=== PATIENT | female | born 1985 | race Asian ===

== ENCOUNTER 2020-09-21 14:30 | Inpatient (IN) ==
--- NOTE | 2020-09-21 16:11 | History & Physical Report ---
Date of Service September 21, 2020 Assessment & Plan (1) : - Admit to L&D for labor - Start pitocin IV per protocol - Anesthesiology consulted for epidural evaluation - Admission CBC pending--follow results - Anticipate Diet: NPO Code: Full Code History of Present Illness Primary Care Provider: NO PCP Yesenia is a 34 y/o female currently at 40 2/7 WGA with an ROSANNA 09/19/2020 as determined by Ultrasound who arrived for observation due to contractions every 10min and 4cm dilation in office. She was scheduled for IOL tomorrow due to postdates. + contractions; + movement; - fluid loss; - bloody show Had regular appointments with OB. Blood type: O+ Antibody screen: Negative Labs 02/10/20 Rubella: Immune VDRL/RPR: Nonreactive Gonorrhea: Neg Chlamydia: Neg HIV: Neg HbSAg: Neg GBS: Neg 08/25/20 COVID-19 negative 09/14/20 Other screens: cff-DNA: no (see scanned documents) CF: no SMA: no Allergies Allergy/AdvReac Type Severity Reaction Status Date / Time No Known Allergies Allergy Verified 09/21/20 13:50 Home Medications Home Medications Medication Instructions Recorded Confirmed Type prenat.vits,yogesh,lah-jeod-rgips 1 tab PO DAILY 02/03/20 09/21/20 History Patient History Medical History Abnormal biochemical finding on screening of mother Encounter for anatomic survey Varicella vaccination Surgical History [place] teeth removed Family History (Updated 02/03/20 @ 13:20 by Taylor Sousa) Other No pertinent family history in first degree relatives Social History (Updated 02/03/20 @ 13:20 by Taylor Sousa) Smoking Status: Never smoker Hx Alcohol Use: No Hx Substance Use: No Preferred Language: Mandarin French Communication Ability: Effective Coordinate Measuring Machine Technician Required: Yes and Video Beliefs That Will Affect Care: None marital status: marital status details: Nicholas Coleman (32) [phone] Current Living Situation: Spouse Current Living Situation Comment: lives with spouse, no pets Feels Safe at Home: Yes Safety Concerns: Feels Safe At This Time Assistive Devices: None Review of Systems Denies fever or chills. Denies shortness of breath or cough Denies chest pain Denies breast pain Denies dysuria or hematuria Denies leg pain or leg swelling Denies headache or changes in vision Physical Exam Physical Exam: General: Alert, oriented. No acute distress. Cardiac: Regular rate and rhythm, no murmurs/rubs/gallops. Respiratory: Clear to auscultation bilaterally a/p, no wheezes/rales/rhonchi. No increased work of breathing. Symmetrical chest rise. No respiratory distress. Abdomen: Gravid. Vertex position. + heart tones. + palpable contractions. EFW 7-8# Pelvic: Dilation 5.5cm; Effacement 75; Station -[address] Escalona External FHT and external uterine monitors used; Category I tracing;Moderate FHT variability. Lower Extremities: No lower extremity edema or swelling. No deep calf pain. Jolly's negative bilaterally. Results & Data ([facility]) Vital Signs (Past 12 Hours) Vital Signs Temp Pulse Resp BP 09/21/20 14:38 37.3 C 65 20 121/66 09/21/20 14:37 65 121/66 Supervising Physician Co-Signing Physician Notes Resident Physician Supervision Note: I was present with Dr. Carlson during the history and exam. I discussed the case with the resident and agree with the findings and plan as documented in the note. Any exceptions or clarifications are listed here: AROM performed after informed consent and clear fluid noted. will see how that augments labor pattern which is irregular. if needed will add pitocin and pt aware. fhts categ 1. Documented By: Justine Escalona MD, FACOG Resident Activity Tracking Resident Involvement: Resident Care Provided Care Provided: OB Delivery
[2020-09-21 16:38] LABS: Hematocrit (blood only) 34.9 % (37-47); Hemoglobin 11.7 g/dL (12.0-16.0); Mean Corpuscular Hemoglobin 32.1 pg (25-34); Mean Corpuscular Volume 95.9 fL (80-100); Mean Platelet Volume 10.5 fL (7.4-10.4); Platelet Count 126 K/uL (130-400); RDW Coefficient of Variation 13.1 % (11.5-14.5); RDW Standard Deviation 45.6 fL (36.4-46.3); Red Blood Count 3.64 M/uL (4.2-5.4); White Blood Count 5.02 K/uL (4.8-10.8)
[2020-09-21 16:40] LABS: Mean Corpuscular Hgb Conc 33.5 g/dL (32-36)
[2020-09-21] MEDS: LACTATED RINGER'S 1,000 ML IV PRN ×3 (16:46→21:00)
[2020-09-21] MEDS ORDERED: ePHEDrine sulfate 50 MG/ML AMP ONE (17:13)
[2020-09-21] MEDS ORDERED: SODIUM CHLORIDE 0.9% INJ 10 ML VIAL ONE (17:14)
[2020-09-21] MEDS ORDERED: fentaNYL citrate 100 MCG/2 ML VIAL ONE (17:14)
[2020-09-21] MEDS ORDERED: fentaNYL 2MCG/ML ROPIVACAINE 1.25MG/ML 100 ML BAG EPI ONE (17:14)
[2020-09-21] MEDS ORDERED: BUPIVACAINE 0.25% 30 ML VIAL ONE (17:14)
[2020-09-21] MEDS ORDERED: fentaNYL 2MCG/ML ROPIVACAINE 1.25MG/ML 100 ML BAG EPI PRN (17:18)
[2020-09-21] MEDS ORDERED: ONDANSETRON INJ 2 MG/ML 2 ML VIAL IV PRN (17:18)
[2020-09-21] MEDS ORDERED: NALOXONE HCL 1 MG in SODIUM CHLORIDE 0.9% 1000ML 1,000 ML IV PRN (17:18)
[2020-09-21] MEDS ORDERED: ePHEDrine sulfate 50 MG/ML AMP IV PRN (17:18)
[2020-09-21] MEDS ORDERED: NALOXONE HCL 0.4 MG/1 ML VIAL/CARP IV PRN (17:18)
[2020-09-21] MEDS ORDERED: diphenhydrAMINE 50 MG/ML VIAL IV PRN (17:18)
[2020-09-21] MEDS ORDERED: PROMETHAZINE HCL 25 MG in SODIUM CHLORIDE 0.9% 50 ML IV PRN (17:18)
--- NOTE | 2020-09-21 17:20 | Anesthesiology Consultation ---
Date of Service September 21, 2020 Assessment & Plan Chart Review Chart Review: Acceptable Risk for Labor Epidural ASA ASA2 Proposed Anesthesia Anesthesia Type: Labor Epidural Risk / Benefits Reviewed With: PT / POA / Parent / Guardian, Accepts Plan and Informed Consent Obtained History Height/Weight Height: 5 ft 4.96 in Weight: 66.224 kg Allergies Allergy/AdvReac Type Severity Reaction Status Date / Time No Known Allergies Allergy Verified 09/21/20 13:50 Medications Home Medications Medication Instructions Recorded Confirmed Last Taken prenat.vits,yogesh,eyw-gffg-qqapm 1 tab PO DAILY 02/03/20 09/21/20 Unknown Active Medications Generic Name Dose Route Start Last Admin Trade Name Freq PRN Reason Stop Dose Admin Lactated Ringer's 1,000 mls @ 125 mls/hr 09/21/20 16:07 09/21/20 17:08 Lr IV 09/23/20 16:06 999 mls/hr .Q8H PRN Infusion L&D Protocol Protocol Past Medical History Medical History Abnormal biochemical finding on screening of mother Encounter for anatomic survey Varicella vaccination Exercise / Class Metabolic Activity II 4-5 Yardwork/Stairs/Walk up hill Past Family History Family History Other No pertinent family history in first degree relatives Past Surgical History Surgical History [place] teeth removed Past Anesthesia History No Hx of Anesthesia Complications and No Family Hx of Anesthesia Complications History of PONV No Hx of PONV and No Hx of Motion Sickness Social History Smoking Status: Never smoker Hx Alcohol Use: No Hx Substance Use: No substance use type: does not use Review of Systems denies fever/cough/ colds/ chest pain/ SOB/ FRANCISCO denies FRANCISCO Physical Exam Vital Signs Last Vital Signs Temp 37.2 C 09/21/20 16:48 Pulse 64 09/21/20 17:56 Resp 20 09/21/20 14:38 BP 143/81 H 09/21/20 17:56 Pulse Ox 97 09/21/20 17:56 ENMT Mouth: no TMJ abnormality and no dentition abnormality Thyromental Distance: > or= 3.5 Finger Breadths Mallampati Class: II Neck neck extension not limited Respiratory normal respiratory effort; no respiratory distress Auscultation: lungs clear to auscultation bilaterally Cardiovascular Rate/Rhythm: regular rate and regular rhythm Neurologic moves all extremities Psychiatric Orientation: alert and oriented x 3 Testing Laboratory Results 09/21/20 16:28
--- NOTE | 2020-09-21 19:00 | Labor Progress Brief Note ---
Date of Service September 21, 2020 Subjective Reason For Note: Requested By RN decel Assessment & Plan (1) Active labor at term: fhts recovered with ivf bolus and position change. this is her spont labor pattern. cx unchanged per nurse. of note, spouse asked nurse when i was not in the room about nipple stimulation to help labor and they were urged not to do. per nurse during decel uterus seemed to have prolonged contraction by palpation. fhts now categ 1. will watch. Admission and Anticipated Discharge Date Admission Date: September 21, 2020 Physical Exam Constitutional: WD/WN, vitals as above Genitourinary: Manual OB Exam: + cervical dilation (per nurse) 6 cm OB Exam Monitor Tracing: + external FHT monitor used (140 mod variability, early decels), + external uterine monitor used (q2-3), + normal FHT variability and + early decelerations present by the time i arrived to room fhts recovered to above, was in 80s, nurse used ivf bolus and position change to help, recent epidural noted. Results & Data ([facility]) Vital Signs (Past 12 Hours) Vital Signs Temp Pulse Resp BP Pulse Ox 09/21/20 18:55 50 L 150/75 H 09/21/20 18:51 53 L 100 09/21/20 18:46 56 L 99 09/21/20 18:41 59 L 145/68 H 98 09/21/20 18:38 56 L 144/87 H 09/21/20 18:36 58 L 97 09/21/20 18:31 54 L 97 09/21/20 18:26 55 L 97 09/21/20 18:21 62 139/73 97 09/21/20 18:17 55 L 138/71 09/21/20 18:16 68 97 09/21/20 18:11 62 137/81 97 09/21/20 18:06 59 L 131/77 97 09/21/20 18:01 65 129/76 96 09/21/20 17:56 64 143/81 H 97 09/21/20 17:54 67 138/77 09/21/20 17:52 60 132/73 09/21/20 17:51 61 97 09/21/20 17:50 67 135/76 09/21/20 17:48 65 150/75 H 09/21/20 17:46 73 98 09/21/20 17:41 71 99 09/21/20 17:36 76 97 09/21/20 17:31 71 97 09/21/20 17:26 64 97 09/21/20 17:21 57 L 98 09/21/20 17:16 60 98 09/21/20 17:11 64 98 09/21/20 16:48 99.0 F 09/21/20 16:46 60 132/83 09/21/20 14:38 99.1 F 65 20 121/66 09/21/20 14:37 65 121/66 Coding Level of Care Code None Diagnoses Active labor at term
--- NOTE | 2020-09-21 21:15 | Labor Progress Brief Note ---
Date of Service September 21, 2020 Subjective Reason For Note: Requested By RN RN thought forebag needed to be arom on her last exam. pt comfortable but starting to feel some suprapubic pressure. Assessment & Plan (1) Active labor at term: begin 2nd stage. fhts categ 2. Admission and Anticipated Discharge Date Admission Date: September 21, 2020 Physical Exam Constitutional: WD/WN, vitals as above Genitourinary: Manual OB Exam: + cervical dilation (ant lip), + cervical effacement 100% and + station + 2 OB Exam Monitor Tracing: + external FHT monitor used (135 mod variability, variables. ), + external uterine monitor used (q2), + category II, + normal FHT variability and + variable decelerations obvious bladder, drained by nurse for 1000cc, ant lip resolved. Results & Data ([facility]) Vital Signs (Past 12 Hours) Vital Signs Temp Pulse Resp BP Pulse Ox 09/21/20 21:11 84 97 09/21/20 21:10 78 152/83 H 09/21/20 21:06 81 97 09/21/20 21:01 93 H 97 09/21/20 20:56 77 97 09/21/20 20:51 67 100 09/21/20 20:46 66 100 09/21/20 20:41 71 154/72 H 100 09/21/20 20:36 66 100 09/21/20 20:31 66 100 09/21/20 20:30 18 09/21/20 20:26 62 100 09/21/20 20:25 57 L 151/81 H 09/21/20 20:21 58 L 100 09/21/20 20:16 62 99 09/21/20 20:12 60 131/72 09/21/20 20:11 60 157/87 H 99 09/21/20 20:06 56 L 100 09/21/20 20:01 66 100 09/21/20 19:56 58 L 100 09/21/20 19:55 62 133/83 09/21/20 19:51 62 100 09/21/20 19:46 62 100 09/21/20 19:41 73 130/70 100 09/21/20 19:36 66 100 09/21/20 19:33 58 L 140/80 09/21/20 19:31 63 100 10/21/20 19:30 18 09/21/20 19:26 62 152/84 H 100 09/21/20 19:21 58 L 100 09/21/20 19:16 59 L 98 09/21/20 19:11 54 L 98 09/21/20 19:09 59 L 125/81 09/21/20 19:06 57 L 98 09/21/20 19:05 99.3 F 18 09/21/20 19:01 53 L 98 09/21/20 18:56 51 L 100 09/21/20 18:55 50 L 150/75 H 09/21/20 18:51 53 L 100 09/21/20 18:46 56 L 99 09/21/20 18:41 59 L 145/68 H 98 09/21/20 18:38 56 L 144/87 H 09/21/20 18:36 58 L 97 09/21/20 18:31 54 L 97 09/21/20 18:26 55 L 97 09/21/20 18:21 62 139/73 97 09/21/20 18:17 55 L 138/71 09/21/20 18:16 68 97 09/21/20 18:11 62 137/81 97 09/21/20 18:06 59 L 131/77 97 09/21/20 18:01 65 129/76 96 09/21/20 17:56 64 143/81 H 97 09/21/20 17:54 67 138/77 09/21/20 17:52 60 132/73 09/21/20 17:51 61 97 09/21/20 17:50 67 135/76 09/21/20 17:48 65 150/75 H 09/21/20 17:46 73 98 09/21/20 17:41 71 99 09/21/20 17:36 76 97 09/21/20 17:31 71 97 09/21/20 17:26 64 97 09/21/20 17:21 57 L 98 09/21/20 17:16 60 98 09/21/20 17:11 64 98 09/21/20 16:48 99.0 F 09/21/20 16:46 60 132/83 09/21/20 14:38 99.1 F 65 20 121/66 09/21/20 14:37 65 121/66 Coding Level of Care Code None Diagnoses Active labor at term
[2020-09-21] MEDS: OXYTOCIN 30 UNITS/500 ML BAG IV PRN ×2 (22:01→22:36)
[2020-09-21] MEDS ORDERED: OXYTOCIN 30 UNITS/500 ML BAG IV PRN (22:38)
[2020-09-21] MEDS ORDERED: oxyCODONE/ACETAMINOPHEN 5mg/325mg TAB PO PRN (22:38)
--- NOTE | 2020-09-21 22:42 | Delivery Summary ---
Vaginal Delivery Summary Date of Service September 21, 2020 Called to see patient by nurse as pushing in 2nd stage resulting in variables t o 80s. Recovery to 130-150s. SVE C/C/+2 +3 with pushing. Patient pushing effectively but bright red bleeding noted with pushing consistent with maternal lacerations of vagina. heart tones at times to 80s but at other times 100s. Counseled couple about vacuum assistance as maternal bleeding consistent and fhts as noted. They gave consent. Bladder had recently been drained. Outlet vacuum used over one pull and one pop off to deliver cephalic. Loose nuchal x 1 reduced easily. Mouth and nose bulb suctioned at perineum and shoulders and body then delivered with ease. to maternal abdomen where cord doubly clamped and cut. Viable male apgars 8,9. Placenta delivered spontaneously and intact with hemostasis achieved with dilute pitocin and uterine massage. Fundal tone was good and brisk bleeding noted consistent with vaginal lacerations. Sulcal tear on left repaired with 3-0 vicyl, followed by more midline vaginal laceration with 3-0 vicryl. 3rd degree perineal laceration noted and allis clamps used to grasp ends of disrupted sphincter. 2-0 vicryl used to reapproximate the anal sphinter in interrupted figure of eight sutures. The perineum was reapproximated in usual fashion with 3-0 vicryl and the skin was reapproximated as well with same suture. Continued bleeding at introitus controlled with several figure of eight sutures of 3-0 vicryl and hemostasis adequate. Uterine tone was reasonable but EBL 700cc, with probably 500 of that being from her lacerations. Mother and baby stable in recovery. Cord blood and cord gases obtained[place] [facility] [place] Vaginal Delivery Codes: 50150 global code for the antepartum, delivery, and post-
[2020-09-21] MEDS ORDERED: OXYTOCIN 20 UNITS in LACTATED RINGER'S 1,000 ML IV SCH (22:45)
[2020-09-21 22:55] LABS: Base Excess Cord Venous Blood -5.6 mEq/L (-7.7-1.9); Cord Venous Blood HCO3 22 mmol/L (18.4-26.8); Cord Venous Blood PCO2 54 mmHg (30.4-57.2); Cord Venous Blood PO2 23 mmHg (14.1-43.3); Cord Venous Blood pH 7.23 (7.20-7.44)
[2020-09-21 22:59] LABS: Hematocrit (blood only) 29.5 % (37-47); Hemoglobin 10.1 g/dL (12.0-16.0)
[2020-09-21 23:04] LABS: Base Excess Cord Arterial Bld -6.2 mEq/L (-9-1.8); CO2 Cord Arterial Blood 56 mmHg (39.1-73.5); HCO3 Cord Arterial Blood 22 mmol/L (19.7-28.5); PO2 Cord Arterial Blood 24 mmHg (4.1-31.7); pH Cord Arterial Blood 7.21 (7.1-7.38)
[2020-09-21 23:06] LABS: O2 Saturation Cord Venous Bld < 68.0 % (<68); Oxygen Sat Cord Arterial Blood < 60.0 % (<60)
[2020-09-21] MEDS ORDERED: SUPERCREAM 0.870% 15 GM JAR EXT PRN (23:12)
[2020-09-21] MEDS ORDERED: BENZOCAINE 20% AER SPR 82.5 GM CAN EXT PRN (23:12)
[2020-09-21] MEDS ORDERED: DIPHTHERIA/TETANUS/PERTUSSIS 0.5 ML SYR/VIAL IM ONE (23:12)
[2020-09-21] MEDS ORDERED: HYDROCORTISONE ACETATE 25 MG SUPP PR PRN (23:12)
[2020-09-22] MEDS: IBUPROFEN 600 MG TAB PO PRN ×5 (00:50→20:03)
[2020-09-22 06:27] LABS: Hematocrit (blood only) 22.5 % (37-47); Hemoglobin 7.7 g/dL (12.0-16.0)
--- NOTE | 2020-09-22 06:55 | Anesthesia Procedure Note ---
Date of Service September 22, 2020 Anesthesia Post Epidural Note Vital Signs Vital Signs: Temp Pulse Resp BP Pulse Ox 37.1 C 90 20 92/64 L 99 09/22/20 05:30 09/22/20 05:30 09/22/20 05:30 09/22/20 05:30 09/22/20 01:30 Pain Intensity Abdomen: Pain Intensity: 2 Notes Mental Status: alert / awake / arousable and participated in evaluation Patient Amnestic to Procedure: No Nausea / Vomiting: adequately controlled Pain: adequately controlled Airway Patency, RR, SpO2: stable & adequate BP & HR: stable & adequate Hydration State: stable & adequate Neuraxial Anesthesia: was administered and sensory block resolved Anesthetic Complications: no major complications apparent and Pt Satisfied with anesthetic care Epidural: Removed without complications and With tip intact
--- NOTE | 2020-09-22 07:10 | Obstetrical Progress Note ---
Date of Service <Yung Watts MD - Last Filed: 09/22/20 08:07> September 22, 2020 Assessment & Plan <Yung Watts MD - Last Filed: 09/22/20 08:07> (1) : - PNL: Rh pos, RI, GBS neg, COVID neg - Feels slightly weak/dizzy this morning. Will eat breakfast; still not ambulating, has not voided on her own. - Insert green cath today as pt green snot been able to urinate on her own - Pain well controlled with ibuprofen 600mg Q4H PRN - After discharge will have 6 week follow-up with Dr. Escalona Day #:: 1 Subjective <Yung Watts MD - Last Filed: 09/22/20 08:07> Yesenia is a 34 y/o female who is PPD #1 following VAVD at 40 2/7 weeks. She reports feeling well overall this morning. Light abdominal cramping and 3/10 pain well managed on analgesics. Has not voided yet on her own after delivery. Has not had a meal yet but will later this morning. Patient still not ambulating as she had some dizziness. Has persistent lochia with some improvement this morning. Currently bottle feeding. Review of Systems Denies fever or chills. Denies shortness of breath or cough. Denies chest pain. Denies breast pain. Denies dysuria. Denies leg pain or leg swelling. Denies headache or changes in vision. Physical Exam <Yung Watts MD - Last Filed: 09/22/20 08:07> General: Alert, oriented. No acute distress. Cardiac: Regular rate and rhythm. No murmurs. Respiratory: Clear to auscultation bilaterally a/p, no wheezes/rales/rhonchi. No increased work of breathing. Symmetrical chest rise. No respiratory distress. Abdomen: Soft, nontender, nondistended. Bowel sounds present. Uterus: Uterine fundus firm, palpable at umbilicus. Lower Extremities: No lower extremity edema or swelling. No deep calf pain. Jolly's negative bilaterally. Results & Data ([facility]) <Yung Watts MD - Last Filed: 09/22/20 08:07> Vital Signs (Past 12 Hours) Vital Signs Temp Pulse Pulse Resp BP BP Pulse Ox 09/22/20 05:30 37.1 C 90 20 92/64 L 09/22/20 01:30 37.5 C 77 18 109/66 99 09/22/20 00:51 79 101/57 L 09/22/20 00:47 76 99 09/22/20 00:45 18 09/22/20 00:42 74 99 09/22/20 00:37 77 99 09/22/20 00:36 71 98/55 L 09/22/20 00:32 72 99 09/22/20 00:27 69 99 09/22/20 00:22 68 98 09/22/20 00:21 73 99/54 L 09/22/20 00:19 80 90/52 L 09/22/20 00:17 74 99 09/22/20 00:15 18 09/22/20 00:12 82 99 09/22/20 00:07 80 99 09/22/20 00:06 79 99/57 L 09/22/20 00:02 76 99 09/21/20 23:57 85 99 09/21/20 23:52 78 99 09/21/20 23:51 72 106/58 L 09/21/20 23:47 85 99 09/21/20 23:45 18 09/21/20 23:42 86 99 09/21/20 23:37 91 H 99 09/21/20 23:36 83 119/61 09/21/20 23:32 87 99 09/21/20 23:30 18 09/21/20 23:27 88 100 09/21/20 23:22 78 100 09/21/20 23:19 82 110/58 L 09/21/20 23:17 83 100 09/21/20 23:15 18 09/21/20 23:14 78 111/58 L 09/21/20 23:12 78 100 09/21/20 23:09 83 109/61 09/21/20 23:07 78 100 09/21/20 23:05 80 100/56 L 90 09/21/20 23:02 83 100 09/21/20 23:00 18 09/21/20 22:58 91/54 L 09/21/20 22:57 89 100 10/21/20 22:55 76 91/52 L 09/21/20 22:52 75 100 20 22:49 74 86/50 L 09/21/20 22:47 74 98 09/21/20 22:46 84 87/50 L 20 22:45 37.2 C 18 09/21/20 22:44 52 L 71/35 L 20 22:41 63 62/34 L 09/21/20 22:40 75 82/47 L 09/21/20 22:24 86 106/66 09/21/20 22:09 96 H 121/68 09/21/20 22:07 100 H 113/68 09/21/20 21:57 18 09/21/20 21:56 135 H 100 09/21/20 21:51 99 H 99 20 21:46 115 H 94 20 21:41 74 100 09/21/20 21:40 78 148/72 H 09/21/20 21:36 78 99 09/21/20 21:31 80 99 09/21/20 21:30 18 09/21/20 21:26 90 95 20 21:25 127 H 93 20 21:24 82 161/79 H 20 21:21 75 97 09/21/20 21:20 96 H 93 20 21:16 85 96 20 21:13 102 H 93 20 21:11 84 97 20 21:10 78 152/83 H 20 21:06 81 97 09/21/20 21:01 93 H 97 20 21:00 37.4 C 18 20 20:56 77 97 21/20 20:51 67 100 21/20 20:46 66 100 2120 20:41 71 154/72 H 100 2120 20:36 66 100 21/20 20:31 66 100 21/20 20:30 18 21/20 20:26 62 100 21/20 20:25 57 L 151/81 H 2120 20:21 58 L 100 2120 20:16 62 99 2120 20:12 60 131/72 10/21/20 20:11 60 157/87 H 99 09/21/20 20:06 56 L 100 09/21/20 20:01 66 100 09/21/20 19:56 58 L 100 09/21/20 19:55 62 133/83 09/21/20 19:51 62 100 09/21/20 19:46 62 100 09/21/20 19:41 73 130/70 100 09/21/20 19:36 66 100 09/21/20 19:33 58 L 140/80 09/21/20 19:31 63 100 09/21/20 19:30 18 09/21/20 19:26 62 152/84 H 100 09/21/20 19:21 58 L 100 09/21/20 19:16 59 L 98 09/21/20 19:11 54 L 98 09/21/20 19:09 59 L 125/81 09/21/20 19:06 57 L 98 <Justine Escalona MD, FACOG - Last Filed: 09/22/20 08:11> Co-Signing Physician Notes Resident Physician Supervision Note: I was present with Dr. Carlson during the history and exam. I discussed the case with the resident and agree with the findings and plan as documented in the note. Any exceptions or clarifications are listed here: pt with dizziness overnight. no ongoing bleeding but hgb 7.7. discussed blood transfusion. consent reviewed and to be signed. couple willing to accept but want to see if after her breakfast anything changes with her ability to ambulate. of note she said she did eat last pm and tanya well. due to urinary retention, did receive green this am and good urine output noted, plan to keep until tomorrow am for voiding trial. Documented By: Justine Escalona MD, FACOG Resident Activity Tracking <Yung Watts MD - Last Filed: 09/22/20 08:07> Resident Involvement: Resident Care Provided Care Provided: OB Delivery
[2020-09-22] MEDS: DOCUSATE SODIUM 100 MG CAP PO SCH ×2 (07:59→20:03)
[2020-09-23] MEDS: IBUPROFEN 600 MG TAB PO PRN ×6 (00:11→23:55)
--- NOTE | 2020-09-23 05:52 | Obstetrical Progress Note ---
Date of Service <Yung Watts MD - Last Filed: 09/23/20 07:39> September 23, 2020 Assessment & Plan <Yung Watts MD - Last Filed: 09/23/20 07:39> (1) : - PNL: Rh pos, RI, GBS neg, COVID neg - Feels well today. Eating well, ambulating well - Ricketts in place--plan to remove today - Patient declined transfusion yesterday w/Hgb at 7.7 and weakness/dizziness--feeling better today - CBC w diff ordered--follow results - Pain well controlled with ibuprofen 600mg Q4H PRN - Routine care -- OOB, ambulation, diet progression as tolerated - After discharge will have 6 week follow-up with Dr. Pola Mccoy #:: 2 Subjective <Yung Watts MD - Last Filed: 09/23/20 07:39> Li is a 34 y/o female who is PPD #2 following VAVD at 40+ weeks. She reports feeling well overall this morning. Light abdominal cramping and 5/10 pain well managed on analgesics. Ricketts still in place. Tolerating meals over night without difficulty. Patient has been able to ambulate some. Has persistent lochia with some improvement this morning. Currently bottle feeding with plans to breast feed--has begun pumping but no milk yet. Review of Systems Denies fever or chills. Denies shortness of breath or cough. Denies chest pain. Denies breast pain. Denies dysuria. Denies leg pain or leg swelling. Denies headache or changes in vision. Physical Exam <Yung Watts MD - Last Filed: 09/23/20 07:39> General: Alert, oriented. No acute distress. Cardiac: Regular rate and rhythm. No murmurs. Respiratory: Clear to auscultation bilaterally a/p, no wheezes/rales/rhonchi. No increased work of breathing. Symmetrical chest rise. No respiratory distress. Abdomen: Soft, nontender, nondistended. Bowel sounds present. Uterus: Uterine fundus firm, palpable 2 cm below umbilicus. Lower Extremities: No lower extremity edema or swelling. No deep calf pain. Jolly's negative bilaterally. Results & Data ([facility]) <Yung Watts MD - Last Filed: 09/23/20 07:39> Vital Signs (Past 12 Hours) Vital Signs Temp Pulse Resp BP 09/22/20 23:40 36.8 C 86 16 108/70 09/22/20 19:35 37.2 C 85 16 109/71 <Cleo Blanchard MD, FACOG - Last Filed: 09/23/20 07:53> Co-Signing Physician Notes Resident Physician Supervision Note: I was present with Dr. Carlson during the history and exam. I discussed the case with the resident and agree with the findings and plan as documented in the note. Any exceptions or clarifications are listed here: [None] Documented By: Cleo Blanchard MD, FACOG Resident Activity Tracking <Yung Watts MD - Last Filed: 09/23/20 07:39> Resident Involvement: Resident Care Provided Care Provided: OB Delivery
[2020-09-23] MEDS: DOCUSATE SODIUM 100 MG CAP PO SCH ×2 (08:29→20:55)
[2020-09-23 08:49] LABS: Basophils # (auto) 0.01 K/uL (0-0.2); Basophils % (auto) 0.1 %; Eosinophils # (auto) 0.09 K/uL (0-0.5); Eosinophils % (auto) 0.9 %; Hemoglobin 7.6 g/dL (12.0-16.0); Immature Granulocytes # (auto) 0.01 K/uL (0.00-0.02); Immature Granulocytes % (auto) 0.1 %; Lymphocytes % (auto) 12.4 %; Mean Corpuscular Hemoglobin 33.3 pg (25-34); Mean Corpuscular Hgb Conc 34.5 g/dL (32-36); Mean Corpuscular Volume 96.5 fL (80-100); Mean Platelet Volume 9.4 fL (7.4-10.4); Monocytes # (auto) 0.55 K/uL (0.11-0.59); Monocytes % (auto) 5.7 %; Neutrophils # (auto) 7.85 K/uL (1.4-6.5); Neutrophils % (auto) 80.8 %; Platelet Count 105 K/uL (130-400); RDW Coefficient of Variation 13.7 % (11.5-14.5); RDW Standard Deviation 47.7 fL (36.4-46.3); Red Blood Count 2.28 M/uL (4.2-5.4); White Blood Count 9.71 K/uL (4.8-10.8)
[2020-09-23 09:14] LABS: Anisocytosis Present
[2020-09-23] MEDS ORDERED: SODIUM CHLORIDE 0.9% 250 ML IV PRN ×2 (10:58→11:08)
--- NOTE | 2020-09-23 11:02 | Obstetrical Progress Note ---
Date of Service September 23, 2020 Assessment & Plan (1) Anemia due to blood loss: - patient has tried to ambulate twice without success - orthostatic when standing - discussed with patient and need for transfusion - all questions answered - permit signed Subjective Continued lightheadedness with ambulation Physical Exam Hgb 7.6 Results & Data ([facility]) Vital Signs (Past 12 Hours) Vital Signs Temp Pulse Resp BP 09/22/20 23:40 98.2 F 86 16 108/70
[2020-09-23] MEDS: ACETAMINOPHEN 325 MG TAB PO PRN ×2 (11:43→21:57)
--- NOTE | 2020-09-23 18:12 | Obstetrical Progress Note ---
Date of Service September 23, 2020 Assessment & Plan (1) Anemia due to blood loss: - Vitals stable post-transfusion - will check H/H in 12 hours - continue to observe for hypotensive sx's Subjective Patient has receives 2U PRBC's. "I feel much better, no longer lightheaded." Results & Data ([facility]) Vital Signs (Past 12 Hours) Vital Signs Temp Pulse Pulse Resp BP BP Pulse Ox 09/23/20 17:25 98.2 F 87 16 125/80 98 09/23/20 16:50 98.8 F 81 18 118/72 98 09/23/20 15:50 99.5 F 84 84 16 111/71 111/71 97 09/23/20 15:20 99.3 F 86 18 109/71 98 09/23/20 15:07 98.6 F 91 H 18 106/70 09/23/20 14:46 97.9 F 89 16 125/74 09/23/20 14:45 97.9 F 89 16 125/74 09/23/20 14:00 99.0 F 72 20 114/72 09/23/20 13:30 99.1 F 82 20 111/69 09/23/20 13:00 98.2 F 83 20 111/69 09/23/20 12:45 98.2 F 84 20 101/64 09/23/20 12:30 98.6 F 87 20 102/60 09/23/20 12:21 98.6 F 87 18 102/60 09/23/20 08:00 98.1 F 71 20 104/68
[2020-09-24] MEDS: IBUPROFEN 600 MG TAB PO PRN ×4 (04:08→17:52)
[2020-09-24 06:09] LABS: Hematocrit (blood only) 28.8 % (37-47); Hemoglobin 9.7 g/dL (12.0-16.0)
--- NOTE | 2020-09-24 06:55 | Obstetrical Progress Note ---
Date of Service <Yung Watts MD - Last Filed: 09/24/20 08:04> September 24, 2020 Assessment & Plan <Yung Watts MD - Last Filed: 09/24/20 08:04> (1) : - PNL: Rh pos, RI, GBS neg, COVID neg - Feels well today. Eating well, ambulating well - Ricketts in place--plan to remove today - Pt transfused w/ 2 units PRBCs yesterday--Hgb up from 7.6 to 9.7 this AM - Pain well controlled with ibuprofen 600mg Q4H PRN - Routine care -- OOB, ambulation, diet progression as tolerated - After discharge will have 6 week follow-up with Dr. Escalona - Plan for discharge later today Subjective <Yung Watts MD - Last Filed: 09/24/20 08:04> Yesenia is a 34 y/o female who is PPD #3 following VAVD at 40 2/7 weeks. She reports feeling well overall this morning. Light abdominal cramping and 4/10 pain well managed on analgesics. Voiding well. Tolerating meals overnight without difficulty. Patient has been able to ambulate some. Has persistent lochia with some improvement this morning. Currently bottle feeding--breast pumping but milk has not come in yet. Review of Systems Denies fever or chills. Denies shortness of breath or cough. Denies chest pain. Denies breast pain. Denies dysuria. Denies leg pain or leg swelling. Denies headache or changes in vision. Physical Exam <Yung Watts MD - Last Filed: 09/24/20 08:04> General: Alert, oriented. No acute distress. Cardiac: Regular rate and rhythm. No murmurs. Respiratory: Clear to auscultation bilaterally a/p, no wheezes/rales/rhonchi. No increased work of breathing. Symmetrical chest rise. No respiratory distress. Abdomen: Soft, nontender, nondistended. Bowel sounds present. Uterus: Uterine fundus firm, palpable 3 cm below umbilicus. Lower Extremities: No lower extremity edema or swelling. No deep calf pain. Jolly's negative bilaterally. Results & Data ([facility]) <Yung Watts MD - Last Filed: 09/24/20 08:04> Vital Signs (Past 12 Hours) Vital Signs Temp Pulse Resp BP Pulse Ox 09/24/20 04:15 36.5 C 75 16 126/82 98 09/23/20 23:30 36.7 C 79 16 113/72 96 09/23/20 20:30 36.9 C 87 18 121/78 98 <Roby Wilkes Jr, MD, FACOG - Last Filed: 09/24/20 08:25> Co-Signing Physician Notes Resident Physician Supervision Note: I was present with Dr. Carlson during the history and exam. I discussed the case with the resident and agree with the findings and plan as documented in the note. Any exceptions or clarifications are listed here: Patient feels much better after transfussion, no orthostatic sx's. Ready for d/c, instructions given, f/u in 6 weeks Documented By: Roby Wilkes Jr, MD, FACOG Resident Activity Tracking <Yung Watts MD - Last Filed: 09/24/20 08:04> Resident Involvement: Resident Care Provided Care Provided: OB Delivery
[2020-09-24] MEDS: DOCUSATE SODIUM 100 MG CAP PO SCH (09:21)
--- NOTE | 2020-09-24 13:54 | Obstetrical Progress Note ---
Date of Service September 24, 2020 Assessment & Plan Admission and Anticipated Discharge Date Admission Date: September 21, 2020 Pt reports short episode has since resolved and she feels fine now. They felt more heart racing was more of their concern than the associated sob. VS stable including normal pulse ox, exam is benign and reassuring. Low suspicion for VTE, can consider EKG if symptoms occur again. Reviewed VTE precautions with pt and her , they verbalized understanding. If remains stable, still plan for d/c today Subjective Evaluated pt at bedside due to report that pt had episode of increased HR with associated SOB that has since resolved. Pt and her stated pt was in the nursery seeing baby for 10-15 minutes, returned to her room for lunch, and a few min later noted that she felt like her heart was racing. She felt slightly short of breath during that time. Total time was a few minutes, spontaneously resolved. No lightheadedness/dizziness, fevers/chills, n/v, chest pain associated. No leg pain or swelling per pt. Reports this has happened just the one time today. Physical Exam Constitutional: WD/WN, vitals as above no acute distress Respiratory: normal respiratory effort, lungs clear to auscultation no respiratory distress, no labored breathing and does not use accessory muscles Cardiovascular: RRR, no murmur, no edema Bilat lower extremities symmetric; no swelling, tenderness, erythema Results & Data ([facility]) Vital Signs (Past 12 Hours) Vital Signs Temp Pulse Resp BP Pulse Ox 09/24/20 13:00 84 18 110/68 97 09/24/20 11:15 98.6 F 77 16 112/70 98 09/24/20 07:20 98.1 F 83 18 117/75 09/24/20 04:15 97.7 F 75 16 126/82 98 PG Care Time/CCT Total # of Minutes Spent Total Time Spent with Patient: Total time spent is greater than 50% in coordination of care (as documented) at patient's floor/unit and/or counseling patient: Coding Level of Care Code None
--- NOTE | 2020-09-25 16:59 | Discharge Summary ---
Date of Service Date of admission: September Date of discharge: September 24, 2020 Admission HPI Per Admitting Provider Yesenia is a 34 y/o female currently at 40 2/7 WGA with an ROSANNA 09/19/2020 as determined by Ultrasound who arrived for observation due to contractions every 10min and 4cm dilation in office. She was scheduled for IOL tomorrow due to postdates. + contractions; + movement; - fluid loss; - bloody show Had regular appointments with OB. Blood type: O+ Antibody screen: Negative Labs 02/10/20 Rubella: Immune VDRL/RPR: Nonreactive Gonorrhea: Neg Chlamydia: Neg HIV: Neg HbSAg: Neg GBS: Neg 08/25/20 COVID-19 negative 09/14/20 Other screens: cff-DNA: no (see scanned documents) CF: no SMA: no Discharge Data Consultations 09/21/20 16:07 Consult Anesthesiology Stat Hospital Course (1) Status post vacuum-assisted vaginal delivery: (2) Severe anemia: (3) Third degree perineal laceration: The patient was admitted in labor and progressed to pushing stage. During that time significant vaginal bleeding noted suspected due to lacerations with descent and intermittent deep variable decelerations. See delivery summary for details. Vacuum assistance recommended. EBL at was 700cc, majority due to bleeding from lacerations. Post-delivery hemoglobin was 7.6 and at first c ouple declined transfusion despite her orthostatic symptoms. Ultimately due to the persistent of these symptoms, did accept 2u PRBCs with post transfusion hemoglobin of 9.7. She also had urinary retention on ppd #1 and ultimately passed voiding trial after green placed and removed next day. Was stable to go home on ppd #3. Instructions reviewed and given. Plan 6 wk pp check up. Coding Level of Care Code None Diagnoses Status post vacuum-assisted vaginal delivery Z87.59 Severe anemia D64.9 Third degree perineal laceration O70.20
--- NOTE | 2020-10-05 12:47 | Coding Query ---
ANEMIA To promote full compliance with coding requirements relating to patient care, physician participation is requested in all cases of synthetic plasterer uncertainty. Please assist us with the question(s) below: Coding Question(s): The record reflects the following clinical findings: Progress Note on 09/23/20 documents Anemia due to Blood Loss and the Discharge Summary documents Severe Anemia. If these findings are indicative of anemia, please specify the known or suspected type by placing an "X" within the parenthesis (x). If other, please document type. Examples are: (x ) Acute blood loss anemia ( ) Acute Postoperative blood loss anemia ( ) Acute postoperative anemia due to dilutional fluids ( ) Chronic blood loss anemia ( ) Anemia of chronic disease ( ) Aplastic anemia ( ) Anemia due to renal disease ( ) Anemia in neoplastic disease ( ) Iron deficient anemia ( ) Anemia, unspecified or other ( ) Other: (please specify) ( ) Unable to determine Thank you Kayla PEARCE
== END 2020-09-24 17:45 | disposition home or self-care (01) | DRG 768 ==
LOC: OPB 14:30 → 4S1 14:31 → 4S2 09-22 01:44